=== PATIENT | female | born 1960 | race Caucasian/White ===

== ENCOUNTER 2023-09-23 08:21 | Emergency (ER) | payer SELFPAY ==
--- NOTE | 2023-09-23 08:38 | PC.NURSE ---
pt reports she is needing to be seen for uterine prolapse and cannot find anyone to take her insurance. after checking pt in she proceeds to state that she does not want to be seen in the ED and that she is just looking for an OBGYN that accepts her insurance. Care Coordination called and Breanne DENNY speaking with pt at this time.
--- NOTE | 2023-09-23 08:50 | PC.NURSE ---
pt ambulated out of ED with family member.
== END 2023-09-23 08:50 | disposition left against medical advice (07) ==
LOC: ANHED 09:01
DX: Z53.21 Procedure and treatment not carried out due to patient leaving prior to being seen by health care provider (principal)
CPT/HCPCS: 99199